=== PATIENT | female | born 1940 | race Two or more races ===

== ENCOUNTER 2016-08-09 10:26 | Outpatient (CLI) | payer OTHER | END 2016-08-09 19:58 | disposition home or self-care (01) | LOC: MRD 10:26 | PROVIDERS: ATTEND Internal Medicine Infectious Disease | DX: M25.562 Pain in left knee (principal); M25.561 Pain in right knee; M25.552 Pain in left hip; M25.551 Pain in right hip | CPT/HCPCS: 73562 ==